=== PATIENT | female | born 1995 | race African-American/Black ===

== ENCOUNTER 2018-01-15 00:34 | Inpatient (IN) | payer OTHER, MEDICAID ==
[~2018-01-15] VITALS: Ht 160 cm; Wt 83.1 kg
[2018-01-15 03:38] LABS: Albumin 3.4 g/dL (3.4-5.0); BUN/Creatinine Ratio 28.6; Basophils # (auto) 0 uL; Basophils % (auto) 0.3 % (0.0-2.0); Bilirubin, Total 0.4 mg/dL (0.2-1.0); Calcium 8.7 mg/dL (8.5-10.1); Eosinophils # (auto) 0 uL; Eosinophils % (auto) 0.1 % (0.0-7.0); Hemoglobin 10.5 g/dL (12.2-16.2); Lymphocytes # (auto) 2.1 uL; Monocytes # (auto) 1.3 uL; Potassium 4.3 mmol/L (3.5-5.1); Total Protein 8.5 g/dL (6.4-8.2)
[2018-01-15 03:57] LABS: Urine Bacteria FEW /hpf (None Seen); Urine Blood Negative /uL (Negative); Urine Specific Gravity 1.011 (1.001-1.035); Urine WBC <1 /hpf (0 - 5)
[2018-01-15 04:42] LABS: Hematocrit 31.4 % (36.0-46.0); Lymphocytes % (auto) 15.1 % (10.0-50.0); Mean Corpuscular Hemoglobin 23.8 pg (28.0-32.0); Mean Corpuscular Hgb Conc. 33.4 g/dL (32.0-36.0); Monocytes % (auto) 9.3 % (0.0-12.0); Neutrophils # (auto) 10.2 uL; Neutrophils % (auto) 75.2 % (37.0-80.0); Nucleated Red Blood Cells % 0.2 %; Platelet Count (auto) 163 10^3/uL (140-450); Red Blood Cells 4.42 10^6/uL (4.0-5.20); Red Cell Distribution Width 19.8 % (11.8-14.3); White Blood Cell 13.6 10^3/uL (4.4-10.8)
[2018-01-15] MEDS ORDERED: ONDANSETRON HCL 4 MG/2 ML VIAL IV PRN (04:45)
[2018-01-15] MEDS ORDERED: LORazepam 2MG/ML-1ML VIAL IV PRN (04:45)
[2018-01-15] MEDS ORDERED: ACETAMINOPHEN 650 mg PER 20 mL UD PO ONE (04:45)
[2018-01-15 06:20] VITALS: BP 104/60
[2018-01-15] MEDS: SODIUM CHLORIDE 0.9% 1,000 ML IV SCH ×2 (06:40→14:45)
[2018-01-15] MEDS: IPRATROPIUM BROM 0.5 MG/2.5ML INH SOL NEB SCH ×3 (06:40→18:37)
[2018-01-15] MEDS: LEVALBUTEROL HCL 1.25 MG/3 ML NEB NEB SCH ×3 (06:40→18:38)
[2018-01-15] MEDS: BUDESONIDE (INHALATION) 0.5 MG/2 ML NEB NEB SCH ×2 (06:40→18:37)
[2018-01-15 09:05] VITALS: BP 104/60
[2018-01-15] MEDS: lamoTRIgine 100 MG TAB GT SCH ×2 (10:00→22:24)
[2018-01-15] MEDS: AZITHROMYCIN 500MG/ 250ML 250 ML IV SCH (10:14)
[2018-01-15 11:30] VITALS: BP 98/55
[2018-01-15] MEDS ORDERED: LACTULOSE 20Gm/30ML SOLN PO PRN (15:45)
[2018-01-15] MEDS ORDERED: LACTULOSE 20Gm/30ML SOLN PO ONE (15:45)
[2018-01-15] MEDS ORDERED: FLEET PEDIATRIC ENEMA 67 ML PR ONE (15:45)
[2018-01-15] MEDS ORDERED: BISACODYL 10 MG RECT SUPP PR ONE (16:00)
[2018-01-15 17:00] VITALS: BP 98/55
[2018-01-15 17:01] VITALS: BP_SYST 104; BP_SYST 98; BP_DIAS 55; BP_DIAS 58
[2018-01-15] MEDS ORDERED: LAMO200T2 PO (18:21)
[2018-01-15] MEDS ORDERED: CHOL20007 OR (18:23)
[2018-01-16] MEDS: IPRATROPIUM BROM 0.5 MG/2.5ML INH SOL NEB SCH ×4 (00:06→19:22)
[2018-01-16] MEDS: LEVALBUTEROL HCL 1.25 MG/3 ML NEB NEB SCH ×4 (00:06→19:23)
[2018-01-16 00:15] VITALS: BP 90/54
[2018-01-16] MEDS: SODIUM CHLORIDE 0.9% 1,000 ML IV SCH ×3 (00:45→21:56)
[2018-01-16 05:29] VITALS: BP 97/58
[2018-01-16] MEDS: BUDESONIDE (INHALATION) 0.5 MG/2 ML NEB NEB SCH ×2 (05:56→19:22)
[2018-01-16 09:00] VITALS: BP 105/58
[2018-01-16] MEDS: lamoTRIgine 100 MG TAB GT SCH ×2 (09:43→21:42)
[2018-01-16] MEDS: AZITHROMYCIN 500MG/ 250ML 250 ML IV SCH (09:44)
[2018-01-16 12:55] VITALS: BP 124/65
[2018-01-16] MEDS: IBUPROFEN 100MG/5ML ORAL SUSP 100 MG/5 ML UD GT PRN (16:07)
[2018-01-16 16:49] VITALS: BP 106/64
[2018-01-16 22:00] VITALS: BP 96/48
[2018-01-17] MEDS: IPRATROPIUM BROM 0.5 MG/2.5ML INH SOL NEB SCH ×3 (00:10→11:33)
[2018-01-17] MEDS: LEVALBUTEROL HCL 1.25 MG/3 ML NEB NEB SCH ×4 (00:20→18:14)
[2018-01-17 05:00] VITALS: BP 89/52
[2018-01-17] MEDS: BUDESONIDE (INHALATION) 0.5 MG/2 ML NEB NEB SCH ×2 (06:05→18:14)
[2018-01-17] MEDS: SODIUM CHLORIDE 0.9% 1,000 ML IV SCH ×2 (06:28→17:13)
[2018-01-17 09:00] VITALS: BP 113/65
[2018-01-17] MEDS: AZITHROMYCIN 500MG/ 250ML 250 ML IV SCH (10:24)
[2018-01-17] MEDS: IBUPROFEN 100MG/5ML ORAL SUSP 100 MG/5 ML UD GT PRN (10:25)
[2018-01-17] MEDS: lamoTRIgine 100 MG TAB GT SCH ×2 (10:27→21:27)
[2018-01-17 13:00] VITALS: BP 131/68
[2018-01-17 17:00] VITALS: BP 116/74
[2018-01-17 21:42] VITALS: BP 117/75
[2018-01-18] MEDS: LEVALBUTEROL HCL 1.25 MG/3 ML NEB NEB SCH ×3 (01:01→13:44)
[2018-01-18] MEDS: SODIUM CHLORIDE 0.9% 1,000 ML IV SCH ×2 (02:45→12:45)
[2018-01-18 05:00] VITALS: BP 115/62
[2018-01-18 07:02] LABS: Basophils # (auto) 0 uL; Eosinophils # (auto) 0 uL; Eosinophils % (auto) 0.1 % (0.0-7.0); Lymphocytes # (auto) 2.1 uL; Monocytes # (auto) 0.6 uL; Monocytes % (auto) 8.3 % (0.0-12.0); Nucleated Red Blood Cells % 0.1 %
[2018-01-18 07:07] LABS: Basophils % (auto) 0.4 % (0.0-2.0); Hematocrit 30.9 % (36.0-46.0); Hemoglobin 10.6 g/dL (12.2-16.2); Lymphocytes % (auto) 27.1 % (10.0-50.0); Mean Corpuscular Hgb Conc. 34.3 g/dL (32.0-36.0); Mean Corpuscular Volume 71.4 fL (80.0-100.0); Neutrophils % (auto) 64.1 % (37.0-80.0); Platelet Count (auto) 184 10^3/uL (140-450); Red Blood Cells 4.32 10^6/uL (4.0-5.20); White Blood Cell 7.7 10^3/uL (4.4-10.8)
[2018-01-18 07:08] LABS: Mean Corpuscular Hemoglobin 24.6 pg (28.0-32.0); Red Cell Distribution Width 19.6 % (11.8-14.3)
[2018-01-18 07:24] LABS: BUN/Creatinine Ratio 13.7; Calcium 8.5 mg/dL (8.5-10.1); Potassium 3.9 mmol/L (3.5-5.1)
[2018-01-18] MEDS: BUDESONIDE (INHALATION) 0.5 MG/2 ML NEB NEB SCH (07:35)
[2018-01-18 09:00] VITALS: BP 118/64
[2018-01-18] MEDS: lamoTRIgine 100 MG TAB GT SCH (10:43)
[2018-01-18] MEDS: AZITHROMYCIN 500MG/ 250ML 250 ML IV SCH (10:44)
== END 2018-01-18 14:40 | disposition home or self-care (01) | DRG 133 ==
LOC: ER 00:34 → TELE 00:35 → CENTRAL 06:20 → TELE-CENTR 16:21
PROVIDERS: ADMIT Nurse Practitioner Family; ATTEND Internal Medicine
DX: J96.00 Acute respiratory failure, unspecified whether with hypoxia or hypercapnia (principal); R56.9 Unspecified convulsions; D57.1 Sickle-cell disease without crisis; J20.9 Acute bronchitis, unspecified; Z93.1 Gastrostomy status; K59.00 Constipation, unspecified; F84.0 Autistic disorder; Z91.040 Latex allergy status; Z91.011 Allergy to milk products; Z91.09 Other allergy status, other than to drugs and biological substances; Z74.01 Bed confinement status
CPT/HCPCS: 36415; 71045; 74176; 80048; 80053; 81001; 85025; 87040; 94640; 96365